=== PATIENT | male | born 1965 | race Two or more races ===

== ENCOUNTER 2023-02-21 15:50 | Observation (INO) | payer MEDICARE, OTHER ==
--- NOTE | 2023-02-21 16:28 | ED ---
General Adult HPI - General Source: RN notes reviewed <Tatiana Price - Last Filed: 03/06/23 02:20> - General Source: patient Limitations: no limitations - History of Present Illness -: days(s) <ManuelakiraRobi - Last Filed: 03/12/23 21:57> - General Stated complaint: Abd Labs Time Seen by Provider: 02/21/23 16:26 - History of Present Illness Initial comments: Patient is a 58-year-old male who presents from his [facility] for jaundice. Started on Sunday. Patient has no pain including abdominal pain states he feels well. Denies fever, chills, nausea, vomiting. Denies change in oral intake. Patient states he has not used alcohol since he had a stroke 7 years ago. (Tatiana Price) - Related Data Home Medications Medication Instructions Recorded Confirmed Acetaminophen Tab [Tylenol Tab] 650 mg PO HS 02/21/16 02/22/23 Melatonin 3 mg PO HS 02/21/16 02/22/23 Potassium Chloride [Potassium 8 meq PO DAILY 02/21/16 02/22/23 Chloride ER] polyethylene glycoL 3350 [Miralax] 17 gm PO Q48H 02/21/16 02/22/23 Acetaminophen Tab [Tylenol] 650 mg PO Q4H PRN 02/22/23 02/22/23 Eucerin Eczema Relief Cream 1% 1 applic TOPICAL HS 02/22/23 02/22/23 Sodium Chloride [[place]] 2 spray EA NOSTRIL TID PRN 02/22/23 02/22/23 carvediloL [Coreg] 12.5 mg PO BID 02/22/23 02/22/23 hydroCHLOROthiazide [Hydrodiuril] 25 mg PO DAILY 02/22/23 02/22/23 levETIRAcetam [Keppra] 1,000 mg PO BID 02/22/23 02/22/23 lisinopriL [Zestril] 10 mg PO BID 02/22/23 02/22/23 Allergies Allergy/AdvReac Type Severity Reaction Status Date / Time No Known Allergies Allergy Verified 02/22/23 07:36 Review of Systems ROS Other: All systems not noted in ROS Statement are negative. <Tatiana Price - Last Filed: 03/06/23 02:20> ROS Other: All systems not noted in ROS Statement are negative. <Robi Bentley - Last Filed: 03/12/23 21:57> ROS Statement: Those systems with pertinent positive or pertinent negative responses have been documented in the HPI. 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 History of Any Multi-Drug Resistant Organisms: None Reported Past Surgical History: Orthopedic Surgery Additional Past Surgical History / Comment(s): Knee surgery; Splenectomy - traumatic Past Anesthesia/Blood Transfusion Reactions: No Reported Reaction Past Psychological History: No Psychological Hx Reported Past Alcohol Use History: Daily Additional Past Alcohol Use History / Comment(s): no alcohol or marijuana since arrival to [facility] Past Drug Use History: Marijuana <Tatiana Price - Last Filed: 03/06/23 02:20> General Exam <Tatiana Price - Last Filed: 03/06/23 02:20> General appearance: alert, in no apparent distress, other (Patient does appear jaundiced) Head exam: Present: atraumatic, normocephalic Eye exam: Present: normal appearance, scleral icterus. Absent: conjunctival injection ENT exam: Present: normal oropharynx Neck exam: Present: normal inspection Respiratory exam: Present: normal lung sounds bilaterally. Absent: respiratory distress, wheezes, rales, rhonchi, stridor Cardiovascular Exam: Present: regular rate, normal rhythm, normal heart sounds. Absent: systolic murmur, diastolic murmur, rubs, gallop GI/Abdominal exam: Present: soft. Absent: distended, tenderness, guarding, rebound, rigid, mass Extremities exam: Present: normal inspection, normal capillary refill. Absent: pedal edema, calf tenderness Back exam: Present: normal inspection. Absent: CVA tenderness (R), CVA tenderness (L) Neurological exam: Present: alert Skin exam: Present: warm, dry, intact, other (Patient jaundiced). Absent: normal color, rash <Robi Bentley - Last Filed: 03/12/23 21:57> - General Exam Comments Initial Comments: Visual Physical Exam Vital signs reviewed General: Well-appearing, nontoxic, no acute distress. Head: Normocephalic, atraumatic Eyes: PERRLA, EOMI ENT: Airway patent Chest: Nonlabored breathing Skin: No visual rash, normal skin tone Neuro: Alert and oriented 3 Musculoskeletal: Right-sided weakness, history of stroke (Tatiana Price) Course Vital Signs 02/21/23 02/21/23 02/22/23 16:25 20:59 06:15 Temperature 98.9 F 98.8 F Pulse Rate 53 L 66 75 Respiratory 18 18 18 Rate Blood Pressure 131/84 138/87 99/63 O2 Sat by Pulse 97 98 98 Oximetry Medical Decision Making - Lab Data Result diagrams: 02/21/23 17:34 02/23/23 05:34 <Tatiana Price - Last Filed: 03/06/23 02:20> - Lab Data Result diagrams: 02/21/23 17:34 02/23/23 05:34 <Robi Bentley - Last Filed: 03/12/23 21:57> - Medical Decision Making I performed the QuickNote portion of this chart - Tatiana Price PA-C (Tatiana Price) Patient is 58-year-old man here to have evaluation for jaundice. The patient's workup does confirm elevated bilirubin. He had ultrasound that appears to show probable pancreatic mass. MRI is recommended. The patient will be admitted to have further studies. Was pt. sent in by a medical professional or institution (BRETT Jim, LOW VISION THERAPIST, urgent care, hospital, or assisted...) When possible be specific @ -[No] Did you speak to anyone other than the patient for history (EMS, parent, family, police, friend...)? What history was obtained from this source @ -[No] Did you review nursing and triage notes (agree or disagree)? Why? @ -[I reviewed and agree with nursing and triage notes] Were old charts reviewed (outside hosp., previous admission, EMS record, old EK G, old radiological studies, urgent care reports/EKG's, assisted records)? Report findings @ -[No old charts were reviewed] Differential Diagnosis (chest pain, altered mental status, abdominal pain women, abdominal pain men, vaginal bleeding, weakness, fever, dyspnea, syncope, headache, dizziness, GI bleed, back pain, seizure, CVA, palpatations, mental he alth, musculoskeletal)? @ -[Differential jaundice cholecystitis, pancreatitis, hepatitis, hemolysis, intra-abdominal malignancy, other biliary obstruction this is not meant to be an all-inclusive list EKG interpreted by me (3pts min.). @ -[As above] X-rays interpreted by me (1pt min.). @ -[None done] CT interpreted by me (1pt min.). @ -[None done] U/S interpreted by me (1pt. min.). @ -[Interpreted by radiology What testing was considered but not performed or refused? (CT, X-rays, U/S, labs)? Why? @ -[None] What meds were considered but not given or refused? Why? @ -[None] Did you discuss the management of the patient with other professionals (professionals i.e. , PA, LOW VISION THERAPIST, lab, RT, psych nurse, social group worker, mild disabilities teacher, teacher, veterinary medical officer, correctional casework specialist)? Give summary @ -[Case discussed with admitting physician and treatment recommendations incorporated Was smoking cessation discussed for >3mins.? @ -[No] Was critical care preformed (if so, how long)? @ -[No] Were there social determinants of health that impacted care today? How? (Homelessness, low income, unemployed, alcoholism, drug addiction, tr ansportation, low edu. Level, literacy, decrease access to med. care, halfway, rehab)? @ -[No] Was there de-escalation of care discussed even if they declined (Discuss DNR or withdrawal of care, Hospice)? DNR status @ -[No] What co-morbidities impacted this encounter? (DM, HTN, Smoking, COPD, CAD, Cancer, CVA, ARF, Chemo, Hep., AIDS, mental health diagnosis, sleep apnea, morbid obesity)? @ -[None] Was patient admitted / discharged? Hospital course, mention meds given and route, prescriptions, significant lab abnormalities, going to OR and other pertinent info. @ -[See above Undiagnosed new problem with uncertain prognosis? @ -[No] Drug Therapy requiring intensive monitoring for toxicity (Heparin, Nitro, Insulin, Cardizem)? @ -[No] Were any procedures done? @ -[No] Diagnosis/symptom? @ -[Acute jaundice Suspect pancreatic mass with biliary obstruction Acute, or Chronic, or Acute on Chronic? @ -[Acute Uncomplicated (without systemic symptoms) or Complicated (systemic symptoms)? @ -[, CABG on his Side effects of treatment? @ -[No] Exacerbation, Progression, or Severe Exacerbation? @ -[No] Poses a threat to life or bodily function? How? (Chest pain, USA, NH, pneumonia, PE, COPD, DKA, ARF, appy, cholecystitis, CVA, Diverticulitis, Homicidal, Suicidal, threat to staff... and all critical care pts) @ -[Biliary obstruction may become life-threatening condition infection develop or if caused by malignancy (Robi Bentley) - Lab Data Lab Results 02/21/23 02/21/23 02/21/23 Range/Units 17:34 17:34 18:26 WBC 7.3 (3.8-10.6) k/uL RBC 4.77 (4.30-5.90) m/uL Hgb 15.6 (13.0-17.5) gm/dL Hct 48.2 (39.0-53.0) % MCV 101.0 H (80.0-100.0) fL MCH 32.8 (25.0-35.0) pg MCHC 32.5 (31.0-37.0) g/dL RDW 12.9 (11.5-15.5) % Plt Count 300 (150-450) k/uL MPV 9.4 Neutrophils % 48 % Lymphocytes % 35 % Monocytes % 12 % Eosinophils % 2 % Basophils % 1 % Neutrophils # 3.5 (1.3-7.7) k/uL Lymphocytes # 2.6 (1.0-4.8) k/uL Monocytes # 0.9 (0-1.0) k/uL Eosinophils # 0.1 (0-0.7) k/uL Basophils # 0.0 (0-0.2) k/uL Sodium (137-145) mmol/L Potassium (3.5-5.1) mmol/L Chloride (98-107) mmol/L Carbon Dioxide (22-30) mmol/L Anion Gap mmol/L BUN (9-20) mg/dL Creatinine (0.66-1.25) mg/dL Est GFR (CKD-EPI)AfAm (>60 ml/min/1.73 sqM) Est GFR (CKD-EPI)NonAf (>60 ml/min/1.73 sqM) Glucose (74-99) mg/dL Lactic Ac Sepsis Rflx Y Plasma Lactic Acid Dusty 2.2 H* (0.7-2.0) mmol/L Calcium (8.4-10.2) mg/dL Total Bilirubin (0.2-1.3) mg/dL AST (17-59) U/L ALT (4-49) U/L Alkaline Phosphatase (38-126) U/L Total Protein (6.3-8.2) g/dL Albumin (3.5-5.0) g/dL 02/21/23 02/21/23 Range/Units 21:35 21:50 WBC (3.8-10.6) k/uL RBC (4.30-5.90) m/uL Hgb (13.0-17.5) gm/dL Hct (39.0-53.0) % MCV (80.0-100.0) fL MCH (25.0-35.0) pg MCHC (31.0-37.0) g/dL RDW (11.5-15.5) % Plt Count (150-450) k/uL MPV Neutrophils % % Lymphocytes % % Monocytes % % Eosinophils % % Basophils % % Neutrophils # (1.3-7.7) k/uL Lymphocytes # (1.0-4.8) k/uL Monocytes # (0-1.0) k/uL Eosinophils # (0-0.7) k/uL Basophils # (0-0.2) k/uL Sodium 138 (137-145) mmol/L Potassium 3.5 (3.5-5.1) mmol/L Chloride 102 (98-107) mmol/L Carbon Dioxide 25 (22-30) mmol/L Anion Gap 11 mmol/L BUN 15 (9-20) mg/dL Creatinine 0.42 L (0.66-1.25) mg/dL Est GFR (CKD-EPI)AfAm >90 (>60 ml/min/1.73 sqM) Est GFR (CKD-EPI)NonAf >90 (>60 ml/min/1.73 sqM) Glucose 143 H (74-99) mg/dL Lactic Ac Sepsis Rflx Plasma Lactic Acid Dusty 1.2 (0.7-2.0) mmol/L Calcium 9.3 (8.4-10.2) mg/dL Total Bilirubin 11.0 H (0.2-1.3) mg/dL AST 68 H (17-59) U/L ALT 88 H (4-49) U/L Alkaline Phosphatase 103 (38-126) U/L Total Protein 7.5 (6.3-8.2) g/dL Albumin 4.0 (3.5-5.0) g/dL Disposition <Tatiana Price - Last Filed: 03/06/23 02:20> Is patient prescribed a controlled substance at d/c from ED?: No <Robi Bentley - Last Filed: 03/12/23 21:57> Clinical Impression: Jaundice, Pancreatic mass Disposition: ADMITTED IP TO THIS HOSP Condition: Fair
--- NOTE | 2023-02-21 17:44 | US ---
EXAMINATION TYPE: US abdomen limited DATE OF EXAM: 02/21/2023 COMPARISON: NONE CLINICAL INDICATION: Male, 58 years old with history of jaundice; painless jaundice TECHNIQUE: Multiple sonographic images of the right upper quadrant are obtained. FINDINGS: EXAM MEASUREMENTS: Liver Length: 17.7 cm Gallbladder Wall: 0.4 cm CBD: 1.7 cm Right Kidney: 10.4 x 4.8 x 6.1 cm Pancreas: hypoechoic lesion seen at head of pancreas, uncertain if 1 or 2 lesions. At the beginning of test 1.4 x 1.8 x 1.2cm lesion seen and when evaluating CBD, larger hypoechoic lesion seen = 3.0 x 2.9 x 2.6cm Liver: dilated intrahepatic ducts, difficult to penetrate Gallbladder: possible sludge within septation seen, thickened wall Evidence for sonographic Sahu's sign: no CBD: grossly dilated with possible pancreatic mass at the head Right Kidney: wnl IMPRESSION: 1. Soft tissue appearing mass near the head of the pancreas which are poorly evaluated on ultrasound . Further evaluation with pancreatic MRI with MRCP recommended. 2. Dilated ducts likely secondary to #1. 3. Biliary sludge.
[2023-02-21 18:09] LABS: Basophils % (A) 1 %; Eosinophils # (A) 0.1 k/uL (0-0.7); Eosinophils % (A) 2 %; HCT 48.2 % (39.0-53.0); HGB 15.6 gm/dL (13.0-17.5); Lymphocytes # (A) 2.6 k/uL (1.0-4.8); Lymphocytes % (A) 35 %; MCH 32.8 pg (25.0-35.0); MCHC 32.5 g/dL (31.0-37.0); Mean Platelet Volume 9.4; Monocytes # (A) 0.9 k/uL (0-1.0); Monocytes % (A) 12 %; Neutrophils # (A) 3.5 k/uL (1.3-7.7); Neutrophils % (A) 48 %; Platelet Count 300 k/uL (150-450); RBC 4.77 m/uL (4.30-5.90); RDW 12.9 % (11.5-15.5); WBC 7.3 k/uL (3.8-10.6)
[2023-02-21 22:11] LABS: ALT 88 U/L (4-49); AST 68 U/L (17-59); African American GFR (CKD) >90 (>60 ml/min/1.73 sqM); Alkaline Phosphatase 103 U/L (38-126); Anion Gap 11 mmol/L; Blood Urea Nitrogen 15 mg/dL (9-20); Calcium 9.3 mg/dL (8.4-10.2); Carbon Dioxide 25 mmol/L (22-30); Chloride 102 mmol/L (98-107); Glucose 143 mg/dL (74-99); Non-African American GFR(CKD) >90 (>60 ml/min/1.73 sqM); Potassium 3.5 mmol/L (3.5-5.1); Sodium 138 mmol/L (137-145); Total Protein 7.5 g/dL (6.3-8.2)
[2023-02-22 06:33] LABS: Calcium Oxalate Crystals,Urine Moderate /hpf; Mucus,Urine Many /hpf; RBC,Urine 1 /hpf (0-5); Squamous Epithelial Cell,Urine <1 /hpf (0-4); WBC,Urine 7 /hpf (0-5)
[2023-02-22 06:34] LABS: Appearance,Urine Cloudy (Clear); Color,Urine Brown
[2023-02-22] MEDS: SODIUM CHLORIDE 0.9% 1,000 ML IV SCH ×2 (09:17→21:00)
[2023-02-22] MEDS: FAMOTIDINE 20 MG TAB PO SCH ×2 (09:17→21:00)
--- NOTE | 2023-02-22 11:39 | P.CONS ---
History of Present Illness - Reason for Consult Consult date: 02/22/23 Jaundice, possible pancreatic mass Requesting physician: Vladimir Le - Chief Complaint Jaundice - History of Present Illness This is a pleasant 58-year-old male who presented to the emergency department for concerns of jaundice. Patient lives in a long-term care facility and was noted to be jaundiced so was sent in for further evaluation. Patient has a past medical history for hemophilia stroke, alcohol abuse, hypertension, and splenectomy. Patient states he started noticing his skin turning yellow over the weekend as well as seizure getting darker. He denies any previous history of jaundice, no previous history of known liver disease. He states he used to drink daily but has not had any alcohol in 6 years since his stroke. He denies any abdominal pain, nausea, or vomiting. Admitting labs WBC 7.3 hemoglobin 15.6 hematocrit 48 platelet count 300,000 tot al bilirubin 11.0 AST 60 8 AM T 88 alkaline phosphatase 103. Patient underwent abdominal ultrasound which reported soft tissue appearing mass near the head of the pancreas which are poorly evaluated on ultrasound. Further evaluation with pancreatic MRI with MRCP recommended. Dilated ducts likely secondary to #1. Biliary sludge. Review of Systems REVIEW OF SYSTEMS: CARDIOPULMONARY: No chest pain or shortness of breath. Gastrointestinal: No abdominal or epigastric pain. No nausea or vomiting. No hematemesis, coffee-ground emesis. No rectal bleeding, or melena. GENITOURINARY: No dysuria or hematuria. MUSCULOSKELETAL: Reports normal range of motion. SKIN: No rashes. Jaundice, noticed 4-5 days ago. ENDOCRINE: No chills, fevers. No excessive weight gain or loss. No polydipsia or polyuria. PSYCHIATRIC: Unremarkable. NEUROLOGY: No change in mental status. Denies dizziness, headache. History of CVA. ENT: Vision unremarkable. CONSTITUTIONAL: No recent weight loss. No fever, chills, night sweats. 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 History of Any Multi-Drug Resistant Organisms: None Reported Past Surgical History: Orthopedic Surgery Additional Past Surgical History / Comment(s): Knee surgery; Splenectomy - traumatic Past Anesthesia/Blood Transfusion Reactions: No Reported Reaction Past Psychological History: No Psychological Hx Reported Smoking Status: Never smoker Past Alcohol Use History: Daily Additional Past Alcohol Use History / Comment(s): no alcohol or marijuana since arrival to [facility] Past Drug Use History: Marijuana Medications and Allergies Home Medications Medication Instructions Recorded Confirmed Type Acetaminophen Tab [Tylenol Tab] 650 mg PO HS 02/21/16 02/22/23 History Melatonin 3 mg PO HS 02/21/16 02/22/23 History Potassium Chloride [Potassium 8 meq PO DAILY 02/21/16 02/22/23 History Chloride ER] polyethylene glycoL 3350 [Miralax] 17 gm PO Q48H 02/21/16 02/22/23 History Acetaminophen Tab [Tylenol] 650 mg PO Q4H PRN 02/22/23 02/22/23 History Eucerin Eczema Relief Cream 1% 1 applic TOPICAL HS 02/22/23 02/22/23 History Sodium Chloride [[place]] 2 spray EA NOSTRIL TID PRN 02/22/23 02/22/23 History carvediloL [Coreg] 12.5 mg PO BID 02/22/23 02/22/23 History hydroCHLOROthiazide [Hydrodiuril] 25 mg PO DAILY 02/22/23 02/22/23 History levETIRAcetam [Keppra] 1,000 mg PO BID 02/22/23 02/22/23 History lisinopriL [Zestril] 10 mg PO BID 02/22/23 02/22/23 History Allergies Allergy/AdvReac Type Severity Reaction Status Date / Time No Known Allergies Allergy Verified 02/22/23 07:36 Physical Exam Vitals: Vital Signs Temp Pulse Pulse Resp BP BP Pulse Ox 02/22/23 07:52 98.7 F 78 18 168/90 94 L 02/22/23 06:15 98.8 F 75 18 99/63 98 02/21/23 20:59 66 18 138/87 98 02/21/23 16:25 98.9 F 53 L 18 131/84 97 Intake and Output 02/21/23 02/22/23 02/22/23 22:59 06:59 14:59 Other: Weight 76.204 kg General appearance: The patient is alert, oriented, appears in no acute distress. HET: Head is normocephalic and atraumatic. Conjunctiva pink. Sclera deeply icteric. Neck: Supple without lymphadenopathy. Trachea midline. Heart: Regular. Lungs: Equal expansion, normal respiratory effort. Abdomen: Soft, nontender, nondistended. No guarding or rigidity. Skin: No rashes. Deeply jaundiced. Extremities: Normal skin color and turgor. No pedal edema. Neurological: No focal deficits. Alert and oriented x3. Results CBC & Chem 7: 02/21/23 17:34 02/21/23 21:35 Labs: Abnormal Lab Results - Last 24 Hours (Table) 02/21/23 02/21/23 02/21/23 Range/Units 17:34 17:34 21:35 MCV 101.0 H (80.0-100.0) fL Creatinine 0.42 L (0.66-1.25) mg/dL Glucose 143 H (74-99) mg/dL Plasma Lactic Acid Dusty 2.2 H* (0.7-2.0) mmol/L Total Bilirubin 11.0 H (0.2-1.3) mg/dL AST 68 H (17-59) U/L ALT 88 H (4-49) U/L Urine WBC (0-5) /hpf Calcium Oxalate Crystal (None) /hpf Urine Mucus (None) /hpf 02/22/23 Range/Units 01:10 MCV (80.0-100.0) fL Creatinine (0.66-1.25) mg/dL Glucose (74-99) mg/dL Plasma Lactic Acid Dusty (0.7-2.0) mmol/L Total Bilirubin (0.2-1.3) mg/dL AST (17-59) U/L ALT (4-49) U/L Urine WBC 7 H (0-5) /hpf Calcium Oxalate Crystal Moderate H (None) /hpf Urine Mucus Many H (None) /hpf Comments: abdominal ultrasound which reported soft tissue appearing mass near the head of the pancreas which are poorly evaluated on ultrasound. Further evaluation with pancreatic MRI with MRCP recommended. Dilated ducts likely secondary to #1. Biliary sludge. Assessment and Plan (1) Jaundice Narrative/Plan: 58-year-old male history of CVA, alcohol abuse and hypertension presented to the emergency department with concern for jaundice. Patient states started noticing his skin turning yellow bowel 4-5 days ago. He has no associated abdominal pain, nausea, or vomiting. No previous history of liver disease. Does have a history of daily alcohol use for many years however quit 6 years ago after having a stroke. Abdominal ultrasound obtained and reports concerns for hyperechoic lesion seen at head of pancreas measuring 1.4 x 1.8 x 1.2 cm lesion that evaluating CBD larger hypoechoic lesion seen 3.0 x 2.9 x 2.6 cm. Dilated intrahepatic ducts with liver being difficult to penetrate. Gallbladder possi ble sludge. Concerns for pancreatic mass. Will order recommended MRI with MRCP for further evaluation, CA-19-9, hepatitis panel however likely will need to consider transfer to tertiary center for endoscopic ultrasound Current Visit: Yes Status: Acute Code(s): R17 - UNSPECIFIED JAUNDICE SNOMED Code(s): 60407302 Plan: 1. Continue symptomatic and supportive care 2. Pancreas MRI/MRCP ordered 3. CA-19-9, hepatitis panel ordered 4. Daily CMP 5. Likely will need to transfer patient to tertiary center for endoscopic ultrasound and further evaluation of pancreas 6. Further recommendations forthcoming Thank you for this consultation, we will continue to follow. Dr. Clint Morales I agree with the dictator's note, documented as a scribe by Hawa MUNGUIA .
[2023-02-22] MEDS: HEPARIN SODIUM,PORCINE 5,000 UNIT/ML 1 ML VIAL SQ SCH ×2 (17:00→21:45)
[2023-02-22] MEDS: polyethylene glycoL 3350 17 GM POWD.PACK PO SCH (18:33)
[2023-02-22 18:43] LABS: Hepatitis C IgG Antibody Reactive (Non-Reactive)
[2023-02-22 19:28] LABS: Hepatitis A Antibody IgM Nonreactive; Hepatitis B Core IgM Nonreactive; Hepatitis B Surface Antigen Nonreactive
--- NOTE | 2023-02-22 20:41 | HP ---
HISTORY AND PHYSICAL HISTORY OF PRESENT ILLNESS: A 58-year-old white male came to the hospital with jaundice. He is found to have pancreatic mass. I examined him in the emergency room on 02/21/2023. He became acutely painless jaundiced, at which time, he came to the hospital. He had a stroke 7 years ago. HOME MEDICATIONS: 1. Melatonin 5 mg at night. 2. Claritin 10 mg daily. 3. Milk of magnesia 30 mL q.i.d. 4. Carvedilol 25 b.i.d. 5. . 6. Acetaminophen p.r.n. 7. Thiamine 100 mg daily. 8. Hydrochlorothiazide 12.5 b.i.d. 9. Keppra 1000 q.12. 10.Zestril 20 mg b.i.d. 11.Potassium 8 mEq daily. ALLERGIES: Negative. REVIEW OF SYSTEMS: Fourteen-point review of systems is otherwise negative. PAST MEDICAL HISTORY: CVA, TIA, hypertension, right hemiparesis, history of hemophilia and stroke, orthopedic surgery, knee surgery, splenectomy, tonsillectomy, daily alcohol. Pancreatic mass seen on CAT scan. ASSESSMENT: Pancreatic mass, unclear etiology. We will get GI or Surgery to see him and admit him, trend bilirubins, do abdominal MRI, . Prognosis is guarded. MMODL / IJN: [id number] /
[2023-02-22] MEDS: carvediloL 12.5 MG TAB PO SCH (21:00)
[2023-02-22] MEDS: levETIRAcetam 500 MG TAB PO SCH (21:00)
[2023-02-22] MEDS: lisinopriL 10 MG TAB PO SCH (21:00)
[2023-02-22] MEDS: MELATONIN 3 MG TABLET PO SCH (21:00)
[2023-02-22] MEDS ORDERED: SODIUM CHLORIDE 0.65% NASAL SPRAY 44 ML BTL NASAL PRN (21:00)
[2023-02-23 09:32] LABS: ALT 70 U/L (10-49); AST 54 U/L (14-35); Albumin 3.4 d/dL (3.8-4.9); Albumin/Globulin Ratio 1.42 Ratio (1.60-3.17); Alkaline Phosphatase 88 U/L (41-126); Blood Urea Nitrogen 12.6 mg/dL (9.0-27.0); Calcium 8.6 mg/dL (8.7-10.3); Carbon Dioxide 21.8 mmol/L (21.6-31.8); Chloride 109 mmol/L (96-109); Globulin 2.4 d/dL (1.6-3.3); Glucose 113 mg/dL (70-110); Potassium 3.5 mmol/L (3.5-5.5); Sodium 140 mmol/L (135-145); Total Bilirubin 9.9 mg/dL (0.3-1.2); Total Protein 5.8 d/dL (6.2-8.2)
[2023-02-23] MEDS: carvediloL 12.5 MG TAB PO SCH ×2 (09:41→21:04)
[2023-02-23] MEDS: lisinopriL 10 MG TAB PO SCH ×2 (09:41→21:05)
[2023-02-23] MEDS: FAMOTIDINE 20 MG TAB PO SCH ×2 (09:41→21:04)
[2023-02-23] MEDS: hydroCHLOROthiazide 25 MG TAB PO SCH (09:41)
[2023-02-23] MEDS: levETIRAcetam 500 MG TAB PO SCH ×2 (09:41→21:04)
[2023-02-23] MEDS: HEPARIN SODIUM,PORCINE 5,000 UNIT/ML 1 ML VIAL SQ SCH ×2 (09:44→16:24)
--- NOTE | 2023-02-23 10:06 | MR ---
EXAMINATION TYPE: MR pancreas / mrcp wo/w con DATE OF EXAM: 02/23/2023 9:17 AM CLINICAL INDICATION:Male, 58 years old with history of jaundice, eval for pancreatic mass seen on US; PHH, Jaundice, abn labs and US. COMPARISON: TECHNIQUE MRI ABDOMEN WITH CONTRAST: Multiplanar multi-sequence imaging was performed without and wit h IV contrast/gadolinium. The patient was given 7 cc Gadavist gadolinium intravenously and dynamic p ost-VIBE (volumetric interpolated breath-hold gradient recall echo) imaging was performed. IV Contrast: 7 cc Gadavist TECHNIQUE MRCP ABDOMEN WITHOUT CONTRAST: Multi planar, T2-weighted imaging with and without fat satur ation and chemical shift imaging was performed of the abdomen. Then, heavily T2 weighted imaging (guillermo f-Fourier acquisition single-shot turbo spin-echo) was utilized in order to study the biliary system. Maximum intensity projection images were reconstructed from the original data of the biliary tree. 3D reconstructions and MIP imaging performed on a separate workstation. FINDINGS: MRCP: Stricture of the main pancreatic duct with upstream dilation extending into the intrahepatic biliary system series 301 image 18 with shouldering of the biliary system. The common duct upstream of this m easures up to 16 mm the common hepatic duct measures up to 21 mm. There is a masslike area of delayed enhancement measuring up to 16 x 12 mm in the pancreatic head. There is upstream beaded appearance o f the main pancreatic duct. The gallbladder does not demonstrate gallstones. LOWER CHEST: No gross irregularity. ABDOMEN Liver: No evidence for hepatic steatosis or cirrhosis. There is a nonenhancing cyst in the right hepa tic lobe. Indeterminate lesion near the dome which appears to have peripheral enhancement with centra l enhancement measuring up to 15 mm. Pancreas: No ductal dilation. No evidence for solid mass. Spleen: Normal for size. Adrenal glands: Unremarkable. Kidneys: No evidence for obstructive uropathy. No suspicious renal masses. Stomach and Bowel: No evidence for bowel wall thickening or evidence for obstruction.. Peritoneum: No evidence of pneumoperitoneum or free fluid. Vasculature: No aortic aneurysm. Musculoskeletal: The osseous structures appear intact. Multilevel degeneration changes throughout the spine with osteophyte formation and disc space narrowing. Lymph Nodes: No gross evidence for lymphadenopathy. Abdominal wall: Unremarkable. IMPRESSION: 1. There is abrupt shouldering of the common bile duct as it enters the pancreas with upstream dilat ion of intrahepatic and extra hepatic biliary system. Delayed enhancement within the pancreatic head suggestive of mass measuring 16 x 12 mm. ERCP with tissue sampling recommended. 2. Indeterminate hepatic dome observation with some peripheral enhancement. Attention on follow-up marie rojas.
--- NOTE | 2023-02-23 10:36 | P.PN ---
Subjective Progress Note Date: 02/23/23 Principal diagnosis: Jaundice, pancreatic mass This is a pleasant 58-year-old male who presented to the emergency department for concerns of jaundice. Patient lives in a long-term care facility and was noted to be jaundiced so was sent in for further evaluation. Patient has a past medical history for hemophilia stroke, alcohol abuse, hypertension, and splenectomy. Patient states he started noticing his skin turning yellow over the weekend as well as seizure getting darker. He denies any previous history of jaundice, no previous history of known liver disease. He states he used to drink daily but has not had any alcohol in 6 years since his stroke. He denies any abdominal pain, nausea, or vomiting. Admitting labs WBC 7.3 hemoglobin 15.6 hematocrit 48 platelet count 300,000 total bilirubin 11.0 AST 60 8 AM T 88 alkaline phosphatase 103. Patient underwent abdominal ultrasound which reported soft tissue appearing mass near the head of the pancreas which are poorly evaluated on ultrasound. Further evaluation with pancreatic MRI with MRCP recommended. Dilated ducts likely secondary to #1. Biliary sludge. 02/23/2023 Seen and examined today as a follow-up. Denies any abdominal pain, nausea or vomiting. He remains jaundice. States he did not sleep well through the night due to interruptions. Otherwise he is without any complaints. CA-19-9 elevated at 881, hepatitis panel reviewed, patient is hepatitis C positive, total bilirubin 9.9 AST 50 4ALT 70 alkaline phosphatase 88. Patient underwent pancreas MRI/MRCP reporting abrupt shouldering of the common bile duct as it enters the pancreas with upstream dilation of intrahepatic and extrahepatic nellie iary system. Delayed enhancement within the pancreatic head suggestive of mass measuring 16 x 12 mm. ERCP with tissue sampling recommended. Indeterminant hepatic dome observation with some peripheral enhancement. Attention on follow- up imaging. Objective - Vital Signs Vital signs: Vital Signs Temp 98.2 F 02/23/23 09:39 Pulse 60 02/23/23 09:39 Resp 18 02/23/23 09:39 BP 147/86 02/23/23 09:39 Pulse Ox 95 02/23/23 09:39 FiO2 Intake & Output 02/22/23 02/23/23 02/23/23 18:59 06:59 18:59 Output Total 325 450 Balance -325 -450 Weight 76.204 kg Output: Urine 325 450 Other: Voiding Method Urinal Urinal Urinal # Bowel Movements 1 1 - Exam General appearance: The patient is alert, oriented, appears in no acute distress. HET: Head is normocephalic and atraumatic. Conjunctiva pink. Sclera anicteric. Neck: Supple without lymphadenopathy. Abdomen: Soft, nontender, nondistended with bowel sounds. No guarding or rigidity. Extremities: Normal skin color and turgor. No pedal edema Skin: No rashes, deeply jaundiced. Neurological: No focal deficits. Alert and oriented. - Labs CBC & Chem 7: 02/21/23 17:34 02/23/23 05:34 Labs: Abnormal Lab Results - Last 24 Hours (Table) 02/22/23 02/22/23 02/23/23 Range/Units 09:59 09:59 05:34 Creatinine 0.5 L (0.6-1.5) mg/dL BUN/Creatinine Ratio 25.20 H (12.00-20.00) Ratio Glucose 113 H (70-110) mg/dL Calcium 8.6 L (8.7-10.3) mg/dL Total Bilirubin 9.9 H (0.3-1.2) mg/dL AST 54 H (14-35) U/L ALT 70 H (10-49) U/L Total Protein 5.8 L (6.2-8.2) d/dL Albumin 3.4 L (3.8-4.9) d/dL Albumin/Globulin Ratio 1.42 L (1.60-3.17) Ratio CA 19-9 Antigen 881.0 H (0.0-34.9) U/mL Hep C IgG Ab Reactive A (Non-Reactive) Assessment and Plan (1) Jaundice Narrative/Plan: 58-year-old male history of CVA, alcohol abuse and hypertension presented to the emergency department with concern for jaundice. Patient states started noticing his skin turning yellow bowel 4-5 days ago. He has no associated abdominal pain, nausea, or vomiting. No previous history of liver disease. Does have a history of daily alcohol use for many years however quit 6 years ago after having a stroke. Abdominal ultrasound obtained and reports concerns for hyperechoic lesion seen at head of pancreas measuring 1.4 x 1.8 x 1.2 cm lesion that evaluating CBD larger hypoechoic lesion seen 3.0 x 2.9 x 2.6 cm. Dilated intrahepatic ducts with liver being difficult to penetrate. Gallbladder possible sludge. Concerns for pancreatic mass. Will order recommended MRI with MRCP for further evaluation, CA-19-9, hepatitis panel however likely will need to consider transfer to tertiary center for endoscopic ultrasound MRI/MRCP of pancreas reviewed reportingpancreas MRI/MRCP reporting abrupt shouldering of the common bile duct as it enters the pancreas with upstream dilation of intrahepatic and extrahepatic biliary system. Delayed enhancement within the pancreatic head suggestive of mass measuring 16 x 12 mm. ERCP with tissue sampling recommended. Indeterminant hepatic dome observation with some peripheral enhancement. Attention on follow-up imaging. CA-19-9 elevated at 881. Recommend transfer to tertiary center such as [facility] for ERCP with endoscopic ultrasound. There will be no further GI present over the next week in this hospital. Current Visit: Yes Status: Acute Code(s): R17 - UNSPECIFIED JAUNDICE SNOMED Code(s): 02826793 (2) Pancreatic mass Current Visit: Yes Status: Acute Code(s): K86.89 - OTHER SPECIFIED DISEASES OF PANCREAS SNOMED Code(s): 728859175 (3) Elevated CA 19-9 level Current Visit: Yes Status: Acute Code(s): R97.8 - OTHER ABNORMAL TUMOR MARKERS SNOMED Code(s): 77144842427431992 Plan: 1. Continue symptomatic and supportive care 2. Pancreas MRI/MRCP ordered and reviewed concerning for pancreatic mass 3. CA-19-9, hepatitis panel ordered. CA-19-9 elevated, hepatitis C antibody positive. 4. Daily CMP, hepatitis C genotype and quantitative ordered 5. Recommend transfer to tertiary center such as [facility] for ERCP with endoscopic ultrasound for concerning pancreatic mass. Plan discussed with patient's nurse to notify primary medical doctor for transfer. Thank you for this consultation, we will sign off at this time as there will be no GI availability at this hospital over the next week. Dr. Clint Morales I agree with the dictator's note, documented as a scribe by Hawa Montemayor.
[2023-02-23] MEDS: SODIUM CHLORIDE 0.9% 1,000 ML IV SCH (19:49)
[2023-02-23] MEDS: MELATONIN 3 MG TABLET PO SCH (21:04)
--- NOTE | 2023-02-23 22:49 | P.CONS ---
History of Present Illness - Reason for Consult Consult date: 02/23/23 VTE prophylaxis, pt with hemophilia Requesting physician: Vladimir Le - Chief Complaint jaundice - History of Present Illness Patient is a 58-year-old male with a significant hx of CVA, hepatitis C, Etoh abuse, splenectomy, and hemophilia. Consult was placed for VTE recommendations. Patient presented to the emergency department for concerns of jaundice. Patient lives in a long-term care facility and was noted to be jaundiced so was sent to the ER for further evaluation. History is somewhat limited as patient is a poor historian. Patient denies any known history of hepatitis C or liver disease. He reports he was diagnosed with hemophilia "a long time ago at [facility]", and hasn't followed up with hematology in over 10 years, and is unsure if he previously received treatment for the same. He reports he has been having intermittent blood in stool for years but states it has been minimal and resolves on own. Denies any recent episodes of acute bleeding. He reports unintentional weight loss of 10lbs over the last 2 weeks. Denies personal and family history of cancer. Denies night sweats. Denies any abdominal pain, nausea, or vomiting. He reports he has been experiencing diarrhea. Upon admission bilirubin was noted at 11.0, AST 68, ALT 88. CBC revealed WBC 7.3. Hemoglobin 15.6, platelet 300,000. Creatinine 0.5. Abdominal ultrasound revealed soft tissue appearing mass near the head of the pancreas. Dilated ducts and biliary sludge. MRCP obtained revealing abrupt shouldering of the common bile duct as it enters the pancreas with upstream dilation of intrahepatic and extrahepatic biliary system. Delayed enhancement within the pancreatic head suggestive of mass measuring 1.6 x 1.2 cm. Indeterminate hepatic dome observation with some peripheral enhancement. CA 19-9 elevated at 881. GI consulted. Hepatitis panel ordered. They are recommending transfer to tertiary center for ERCP with biopsy of pancreatic mass. Primary team has been notified. Review of Systems 10 point ROS is negative except as stated in the HPI 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 History of Any Multi-Drug Resistant Organisms: None Reported Past Surgical History: Orthopedic Surgery Additional Past Surgical History / Comment(s): Knee surgery; Splenectomy - traumatic Past Anesthesia/Blood Transfusion Reactions: No Reported Reaction Past Psychological History: No Psychological Hx Reported Past Alcohol Use History: Daily Additional Past Alcohol Use History / Comment(s): no alcohol or marijuana since arrival to [facility] Past Drug Use History: Marijuana Medications and Allergies Home Medications Medication Instructions Recorded Confirmed Type Acetaminophen Tab [Tylenol Tab] 650 mg PO HS 02/21/16 02/22/23 History Melatonin 3 mg PO HS 02/21/16 02/22/23 History Potassium Chloride [Potassium 8 meq PO DAILY 02/21/16 02/22/23 History Chloride ER] polyethylene glycoL 3350 [Miralax] 17 gm PO Q48H 02/21/16 02/22/23 History Acetaminophen Tab [Tylenol] 650 mg PO Q4H PRN 02/22/23 02/22/23 History Eucerin Eczema Relief Cream 1% 1 applic TOPICAL HS 02/22/23 02/22/23 History Sodium Chloride [[place]] 2 spray EA NOSTRIL TID PRN 02/22/23 02/22/23 History carvediloL [Coreg] 12.5 mg PO BID 02/22/23 02/22/23 History hydroCHLOROthiazide [Hydrodiuril] 25 mg PO DAILY 02/22/23 02/22/23 History levETIRAcetam [Keppra] 1,000 mg PO BID 02/22/23 02/22/23 History lisinopriL [Zestril] 10 mg PO BID 02/22/23 02/22/23 History Allergies Allergy/AdvReac Type Severity Reaction Status Date / Time No Known Allergies Allergy Verified 02/22/23 07:36 Physical Exam Vitals: Vital Signs Temp Pulse Resp BP Pulse Ox 02/23/23 09:39 98.2 F 60 18 147/86 95 02/23/23 07:20 81 17 02/23/23 02:00 99.2 F 81 17 125/59 94 L 02/22/23 21:07 19 02/22/23 20:00 98.3 F 61 17 153/83 96 02/22/23 14:51 99.3 F 74 19 144/85 95 Intake and Output 02/22/23 02/23/23 02/23/23 22:59 06:59 14:59 Output Total 450 Balance -450 Output: Urine 450 Other: Voiding Method Urinal Urinal # Bowel Movements 1 1 - Constitutional General appearance: average body habitus, no acute distress - EENT Eyes: scleral icterus ENT: hearing grossly normal - Respiratory Respiratory: bilateral: CTA - Cardiovascular Rhythm: regular Heart sounds: normal: S1, S2 - Gastrointestinal General gastrointestinal: soft, no tenderness - Integumentary Integumentary: jaundiced - Neurologic confused to time, A&O x 2, generalized weakness - Musculoskeletal Musculoskeletal: generalized weakness Results CBC & Chem 7: 02/21/23 17:34 02/23/23 05:34 Labs: Abnormal Lab Results - Last 24 Hours (Table) 02/22/23 02/22/23 02/23/23 Range/Units 09:59 09:59 05:34 Creatinine 0.5 L (0.6-1.5) mg/dL BUN/Creatinine Ratio 25.20 H (12.00-20.00) Ratio Glucose 113 H (70-110) mg/dL Calcium 8.6 L (8.7-10.3) mg/dL Total Bilirubin 9.9 H (0.3-1.2) mg/dL AST 54 H (14-35) U/L ALT 70 H (10-49) U/L Total Protein 5.8 L (6.2-8.2) d/dL Albumin 3.4 L (3.8-4.9) d/dL Albumin/Globulin Ratio 1.42 L (1.60-3.17) Ratio CA 19-9 Antigen 881.0 H (0.0-34.9) U/mL Hep C IgG Ab Reactive A (Non-Reactive) US - abdomen: report reviewed MRI - abdomen: report reviewed Assessment and Plan (1) Jaundice Current Visit: Yes Status: Acute Priority: High Code(s): R17 - UNSPECIFIED JAUNDICE SNOMED Code(s): 93593991 (2) Pancreatic mass Current Visit: Yes Status: Acute Priority: High Code(s): K86.89 - OTHER SPECIFIED DISEASES OF PANCREAS SNOMED Code(s): 311592858 (3) Hemophilia Current Visit: Yes Status: Acute Priority: Medium Code(s): D66 - HEREDITARY FACTOR VIII DEFICIENCY SNOMED Code(s): 17800196 Plan: Pancreatic mass: -Presented with c/o jaindice -Hx of hep C and ETOH abuse -Abdominal ultrasound revealed soft tissue appearing mass near the head of the pancreas. Dilated ducts and biliary sludge. MRCP obtained revealing abrupt shouldering of the common bile duct as it enters the pancreas with upstream dilation of intrahepatic and extrahepatic biliary system. Delayed enhancement within the pancreatic head suggestive of mass measuring 1.6 x 1.2 cm. Indeterminate hepatic dome observation with some peripheral enhancement. -CA 19-9 elevated at 881 -GI consulted. Hepatitis panel ordered. They are recommending transfer to tertiary center for ERCP with biopsy of pancreatic mass. Primary team has been notified. Agree with GI recommendation for EGD with EUS for pancreatic biopsy to confirm diagnosis -Spoke with patient regarding scan results and concerns for pancreatic cancer. Not sure how much patient was able to understand. Tried to call sister who helps assist patient with medical care/decisions, however was unable to speak with her. Voicemail was left -Patient was given office contact information. Will request records once biopsy has been obtained, and will establish care locally if patient/family would like to pursue care/treatment within our clinic. Will update family once able to speak with sister Hemophilia: -Hx of hemophilia. Patient reports he was diagnosed with hemophilia "a long time ago at [facility]", and hasn't followed up with hematology in over 10 years, and is unsure if he previously received treatment for the same. Reports having intermittent blood in stool for years but states it has been minimal and is self limiting. Denies any recent episodes of acute bleeding -Hgb stable at 15.6, platelets 300,000 -He is low risk for bleed for EGD/EUS. He may continue on VTE prophylaxis dose subq heparin -VWB factor ordered by IM, will order Factor VIII and IX attests: I seen and examined patient, performed H&P, developed impression and plan of care. Discussed with dictator. Agree with documentation, dictated as a scri
[2023-02-24] MEDS: HEPARIN SODIUM,PORCINE 5,000 UNIT/ML 1 ML VIAL SQ SCH ×3 (00:14→17:47)
[2023-02-24] MEDS: SODIUM CHLORIDE 0.9% 1,000 ML IV SCH (01:57)
[2023-02-24] MEDS: hydroCHLOROthiazide 25 MG TAB PO SCH (09:08)
[2023-02-24] MEDS: FAMOTIDINE 20 MG TAB PO SCH ×2 (09:08→19:50)
[2023-02-24] MEDS: levETIRAcetam 500 MG TAB PO SCH ×2 (09:08→19:49)
[2023-02-24] MEDS: carvediloL 12.5 MG TAB PO SCH ×2 (09:08→19:49)
[2023-02-24] MEDS: lisinopriL 10 MG TAB PO SCH ×2 (09:11→19:50)
[2023-02-24] MEDS: polyethylene glycoL 3350 17 GM POWD.PACK PO SCH (17:47)
[2023-02-24] MEDS: MELATONIN 3 MG TABLET PO SCH (20:58)
--- NOTE | 2023-02-24 22:17 | PN ---
PROGRESS NOTE SUBJECTIVE: A 58-year-old white male. Waiting for his transfer to [facility]. I talked to them yesterday as well as today for transfer for possible pancreatic mass versus probable cancer for transfer to [facility] for either biopsy or Whipple's procedure per GI recommendations. We are going to take him. He is resting comfortably in bed OBJECTIVE: CARDIOVASCULAR: S1, S2. LUNGS: Clear. GI: Distended. INTEGUMENT: Some yellowing of the skin. Prognosis guarded. Please see further orders. MMODL / IJN: [id number] /
[2023-02-24 22:34] VITALS: BP 153/87; PULSE 66; RESP 19; TEMP 98.8
[2023-03-01 14:07] LABS: HCV Qualitative Result DETECTED (Not detected); HCV Quant Log 4.11 (<1.08)
--- NOTE | 2023-03-07 01:25 | DS ---
DISCHARGE SUMMARY MEDICATIONS: Potassium chloride 8 mEq daily, Zestril 10 mg b.i.d., Coreg 12.5 mg b.i.d., Keppra 500 mg 2 tabs b.i.d., HydroDIURIL 25 mg daily, eczema cream daily. PROGNOSIS: Guarded. ACTIVITY: As tolerated. He is stable. The patient came to me and had consult with Dr. Massey. History of CVA, hepatitis C, liver failure, alcohol abuse, splenectomy, hemophilia, in the ER for jaundice. Hemoglobin 15.6, creatinine 7.5. Ultrasound shows a mass in the head of the pancreas, dilated ducts of biliary sludge suggestive of a mass. A CA-99 was elevated. GI consulted. Hepatitis panel was ordered. for possible workup. Procedure, discussed case with the family and patient. The patient was stabilized over the last few days and was sent home in stable condition prognosis guarded. MMOSMAN / IJN: [id number] /
== END 2023-02-24 21:26 | disposition short-term general hospital (02) ==
LOC: EC 15:50 → EEVIPCON 15:50 → INTOOBSV 23:30 → 5NMEDONC 23:30 → 4SSUR 02-22 06:20 → UNDODISIN 02-24 21:26
PROVIDERS: ADMIT Family Medicine; ATTEND Family Medicine
DX: K86.89 Other specified diseases of pancreas (principal); B19.20 Unspecified viral hepatitis C without hepatic coma; D66 Hereditary factor VIII deficiency; R97.8 Other abnormal tumor markers; K83.8 Other specified diseases of biliary tract; R63.4 Abnormal weight loss; I10 Essential (primary) hypertension; Z79.899 Other long term (current) drug therapy; Z90.81 Acquired absence of spleen; Z87.898 Personal history of other specified conditions; Z87.19 Personal history of other diseases of the digestive system; Z86.73 Personal history of transient ischemic attack (TIA), and cerebral infarction without residual deficits; Z98.890 Other specified postprocedural states
CPT/HCPCS: 96360; 96361 ×2; 96372; 99285; 36415; 87522; 80053 ×2; 80074; 87902; 83605; 85025; 81001; 85240; 85246; 85250; 86301; 76705; 74183; G0378 ×3; J1644; A9585